=== PATIENT | female | born 1950 | race Caucasian/White ===

== ENCOUNTER → 2018-11-09 07:03 | Outpatient (CLI) | payer OTHER, SELFPAY ==
[2018-11-09 07:40] LABS: Appearance Urine UA CLEAR; Bilirubin Urine UA NEGATIVE (NEGATIVE); Color Urine UA YELLOW; Glucose Urine UA NEGATIVE (Negative); Ketones Urine UA NEGATIVE (NEGATIVE); Leukocyte Esterase Urine UA 1+ (NEGATIVE); Nitrite Urine UA NEGATIVE (Negative); Occult Blood Urine UA NEGATIVE (Negative); Protein Urine UA NEGATIVE (Negative); Urobilinogen Urine UA 0.2 E.U./dL (0.2)
[2018-11-09 08:07] LABS: Add Manual Diff / Slide Review NO; Basophils Absolute Auto 0 /uL (0-100); Basophils Percent Auto 0.4 % (0-2); Eosinophils Absolute Auto 200 /uL (0-450); Eosinophils Percent Auto 2.9 % (2-4); Hematocrit 42.7 % (36-46); Hemoglobin 14.4 g/dL (12.0-16.0); Lymphocytes Absolute Auto 2400 /uL (1100-4500); Lymphocytes Percent Auto 42.2 % (25-40); Mean Corpuscular HGB Conc 33.7 % (30-36); Mean Corpuscular Hemoglobin 29.2 PG (26-34); Mean Corpuscular Volume 86.6 fL (80-100); Monocytes Absolute Auto 500 /uL (0-900); Monocytes Percent Auto 9.6 % (3-14); Neutrophils Absolute Auto 2500 /uL (1500-7000); Neutrophils Percent Auto 44.9 % (50-75); Platelet Count 369 X10^3/uL (150-400); Red Blood Cell Count 4.93 X10^6/uL (4.0-5.2); White Blood Cell Count 5.6 X10^3/uL (4.5-11.0)
[2018-11-09 08:12] LABS: RBC Urine 0-1/HPF (0-5/HPF); Squamous Epithelial Cell Urine 1-5 /HPF; WBC Urine 5-10/HPF (0-5/HPF)
[2018-11-09 08:13] LABS: Alanine Aminotransferase 25 IU/L (9-52); Albumin 4.4 g/dL (3.5-5.0); Albumin Globulin Ratio 1.3 (1.0-2.8); Alkaline Phosphatase 65 U/L (38-126); Aspartate Aminotransferase 28 IU/L (14-36); Bacteria Urine Moderate (10-30); Bilirubin Total 0.9 mg/dL (0.2-1.3); Blood Urea Nitrogen 12 mg/dL (7-17); Calcium 10.1 mg/dL (8.4-10.2); Carbon Dioxide 28 mmol/L (22-32); Chloride 101 mmol/L (98-107); Cholesterol 215 mg/dL (140-199); Culture Indicated Urine Specimen Cultured; Estimated Glomerular Filt Rate > 60.0 mL/min (>60); Globulin 3.3 g/dL (1.7-4.1); Glucose 100 mg/dL (80-110); HDL Cholesterol 68 mg/dL (40-60); HEMOLYSIS < 15 (0-50); LDL Cholesterol Calculated 129 mg/dL (<100); Potassium 4.6 mmol/L (3.4-5.1); Sodium 139 mmol/L (137-145); Total Protein 7.7 g/dL (6.3-8.2); Triglycerides 89 mg/dL (35-150)
[2018-11-09 08:44] LABS: Thyroid Stimulating Hormone 2.14 uIU/mL (0.47-4.68)
== END ==
PROVIDERS: PCP Family Medicine; Visit Provider Family Medicine
DX: I10 Essential (primary) hypertension (principal); Z51.81 Encounter for therapeutic drug level monitoring
CPT/HCPCS: 36415; 80053; 80061; 81003; 81015; 84443; 85025; 87086

== ENCOUNTER → 2019-08-24 08:17 | Outpatient (CLI) | payer OTHER, SELFPAY ==
[2019-08-24 09:21] LABS: Alanine Aminotransferase 16 IU/L (<35); Albumin 4.2 g/dL (3.5-5.0); Albumin Globulin Ratio 1.6 (1.0-2.8); Alkaline Phosphatase 66 U/L (38-126); Aspartate Aminotransferase 28 IU/L (14-36); BUN Creatinine Ratio 18.6 (6-22); Bilirubin Total 0.8 mg/dL (0.2-1.3); Blood Urea Nitrogen 13 mg/dL (7-17); Calcium 9.9 mg/dL (8.4-10.2); Carbon Dioxide 28 mmol/L (22-32); Chloride 99 mmol/L (98-107); Cholesterol 211 mg/dL (140-199); Estimated Glomerular Filt Rate > 60.0 mL/min (>60); Globulin 2.6 g/dL (1.7-4.1); Glucose 91 mg/dL (80-110); HDL Cholesterol 66 mg/dL (40-60); HEMOLYSIS < 15 (0-50); LDL Cholesterol Calculated 131 mg/dL (<100); Potassium 4.5 mmol/L (3.4-5.1); Sodium 135 mmol/L (137-145); Total Protein 6.8 g/dL (6.3-8.2); Triglycerides 68 mg/dL (35-150)
[2019-08-24 09:52] LABS: Creatinine Urine Random 79.5 mg/dL
[2019-08-24 09:57] LABS: Microalbumi Creatinin Ratio Ur 11.3 ug/mg CR (<30); Microalbumin Urine Random 0.9 mg/dL (0-1.6)
== END ==
PROVIDERS: Physician Assistant; PCP Family Medicine; Visit Provider Family Medicine
DX: Z13.220 Encounter for screening for lipoid disorders (principal); Z13.6 Encounter for screening for cardiovascular disorders; I10 Essential (primary) hypertension
CPT/HCPCS: 36415; 80053; 80061; 82043; 82570

== ENCOUNTER → 2020-05-30 14:20 | Outpatient (CLI) | payer OTHER, SELFPAY ==
--- NOTE | 2020-05-30 14:21 | DI.MG.S_ITS ---
BILATERAL DIGITAL SCREENING MAMMOGRAM 3D/2D WITH CAD: 05/30/2020 CLINICAL: Routine screening. Family history of breast cancer. Comparison is made to exams dated: 02/16/2018 mammogram, 12/17/2015 mammogram, and 01/30/2002 mammogram - [facility]. The tissue of both breasts is predominantly fatty. Current study was also evaluated with a Computer Aided Detection (CAD) system. No significant masses, calcifications, or other findings are seen in either breast. There has been no significant interval change. IMPRESSION: NEGATIVE There is no mammographic evidence of malignancy. A 1 year screening mammogram is recommended. This exam was interpreted at Station ID: [id number]. NOTE: For mammograms, a report in lay terms will be sent to the patient. Approximately 15% of breast malignancies will not be visualized mammographically. In the management of a palpable breast mass, a negative mammogram must not discourage biopsy of a clinically suspicious lesion. Electronically Signed By: Mark silva/nick:05/30/2020 17:36:45 letter sent: Normal Exam ACR BI-RADS Category 1: Negative 3341F
== END ==
PROVIDERS: PCP Student in an Organized Health Care Education/Training Program; Referring Provider Student in an Organized Health Care Education/Training Program; Visit Provider Student in an Organized Health Care Education/Training Program
DX: Z12.31 Encounter for screening mammogram for malignant neoplasm of breast (principal); Z80.3 Family history of malignant neoplasm of breast; Z13.820 Encounter for screening for osteoporosis; M85.851 Other specified disorders of bone density and structure, right thigh; Z78.0 Asymptomatic menopausal state; Z91.89 Other specified personal risk factors, not elsewhere classified
CPT/HCPCS: 77063; 77067; 77080

== ENCOUNTER → 2020-08-28 06:44 | Outpatient (CLI) | payer OTHER, SELFPAY ==
[2020-08-28 08:34] LABS: BUN Creatinine Ratio 15.2 (6-22); Blood Urea Nitrogen 12 mg/dL (7-17); Calcium 10.1 mg/dL (8.4-10.2); Carbon Dioxide 32 mmol/L (22-32); Chloride 101 mmol/L (98-107); Estimated Glomerular Filt Rate > 60.0 mL/min (>60); Glucose 102 mg/dL (80-110); HEMOLYSIS < 15 (0-50); Sodium 135 mmol/L (137-145)
== END ==
PROVIDERS: PCP Student in an Organized Health Care Education/Training Program; Referring Provider Student in an Organized Health Care Education/Training Program; Visit Provider Student in an Organized Health Care Education/Training Program
DX: I10 Essential (primary) hypertension (principal)
CPT/HCPCS: 36415; 80048

== ENCOUNTER → 2020-11-11 07:30 | Outpatient (CLI) | payer MEDICARE, SELFPAY ==
[2020-11-11] MEDS: COVID-19 VACC #1, MRNA(MOD) 100 MCG/0.5 ML VIAL IM (07:35)
== END ==
PROVIDERS: PCP Student in an Organized Health Care Education/Training Program; Visit Provider Internal Medicine
DX: Z23 Encounter for immunization (principal)
CPT/HCPCS: 0011A; 91301

== ENCOUNTER → 2020-12-09 07:28 | Outpatient (CLI) | payer MEDICARE, SELFPAY ==
[2020-12-09] MEDS: COVID-19 VACC #2, MRNA(MOD) 100 MCG/0.5 ML VIAL IM (07:34)
== END ==
PROVIDERS: PCP Student in an Organized Health Care Education/Training Program; Visit Provider Internal Medicine
DX: Z23 Encounter for immunization (principal)
CPT/HCPCS: 0012A; 91301

== ENCOUNTER → 2021-03-03 15:31 | Outpatient (CLI) | payer OTHER, SELFPAY ==
[2021-03-03 16:38] LABS: Mean Corpuscular HGB Conc 33.4 % (30-36); Mean Corpuscular Hemoglobin 28.1 PG (26-34); Mean Corpuscular Volume 84.3 fL (80-100); Platelet Count 301 X10^3/uL (150-400); Red Blood Cell Count 4.27 X10^6/uL (4.0-5.2); Red Cell Distribution Width 13.6 % (11.6-14.8); White Blood Cell Count 12.5 X10^3/uL (4.5-11.0)
[2021-03-03 16:42] LABS: Add Manual Diff / Slide Review YES
[2021-03-03 16:58] LABS: Creatine Kinase 21 U/L (30-135)
[2021-03-03 17:02] LABS: Alanine Aminotransferase 71 IU/L (<35); Albumin 3.4 g/dL (3.5-5.0); Alkaline Phosphatase 78 U/L (38-126); Aspartate Aminotransferase 83 IU/L (14-36); BUN Creatinine Ratio 12.7 (6-22); Bilirubin Total 0.6 mg/dL (0.2-1.3); Blood Urea Nitrogen 10 mg/dL (7-17); C-Reactive Protein Quant 1.7 mg/dL (<1.0); Calcium 9.8 mg/dL (8.4-10.2); Carbon Dioxide 27 mmol/L (22-32); Chloride 102 mmol/L (98-107); Estimated Glomerular Filt Rate > 60.0 mL/min (>60); Globulin 3.4 g/dL (1.7-4.1); Glucose 108 mg/dL (80-110); HEMOLYSIS < 15 (0-50); Potassium 4.2 mmol/L (3.4-5.1); Sodium 134 mmol/L (137-145); Total Protein 6.8 g/dL (6.3-8.2)
[2021-03-03 17:08] LABS: Neutrophils Absolute Manual 3375 /uL (3000-5900); Total Cells Counted 100
[2021-03-03 17:10] LABS: RBC Morphology Normal Morphology; Reactive Lymphocytes 2+; Troponin I < 0.012 ng/mL (0.01-0.034)
[2021-03-03 17:38] LABS: Erythrocyte Sedimentation Rate 34 MM/HR (0-20)
== END ==
PROVIDERS: PCP Student in an Organized Health Care Education/Training Program; Referring Provider Student in an Organized Health Care Education/Training Program; Visit Provider Student in an Organized Health Care Education/Training Program
DX: I95.9 Hypotension, unspecified (principal); R10.9 Unspecified abdominal pain
CPT/HCPCS: 36415; 80053; 82550; 84484; 85007; 85025; 85651; 86140

== ENCOUNTER → 2021-03-19 07:03 | Outpatient (CLI) | payer OTHER, SELFPAY ==
[2021-03-19 07:51] LABS: Hemoglobin 12.8 g/dL (12.0-16.0); Mean Corpuscular HGB Conc 33.6 % (30-36); Mean Corpuscular Hemoglobin 28.5 PG (26-34); Platelet Count 298 X10^3/uL (150-400); Red Blood Cell Count 4.47 X10^6/uL (4.0-5.2); Red Cell Distribution Width 15.1 % (11.6-14.8); White Blood Cell Count 9.6 X10^3/uL (4.5-11.0)
[2021-03-19 08:19] LABS: Neutrophils Absolute Manual 2976 /uL (3000-5900); RBC Morphology Normal Morphology; Total Cells Counted 100
--- NOTE | 2021-03-19 15:55 | DI.ECHO.S_ITS ---
[facility]---------+ [facility] +---------+ : : [address] : : : : [id number] : : : : Phone: [phone]---------+ Echocardiogram Report + + :Name: CARLOS GRAMAJO Study Date: 03/19/2021 Height: 64.5 in : :[facility] ReadingLocation: Weight: 175 lb : : Gender: Female BSA: 1.9 m2 : :: 1950 Age: 70 yrs BP: 148/102 mmHg: :Reason For Study: HYPOTENSION : :Ordering Physician: ANIBAL, : :MISA Performed By: Autumn Yates : :Referring: MISA BARNETT : + + Interpretation Summary The left ventricle is normal in size and wall thickness. Left ventricular systolic function appears normal without focal wall motion abnormalities. The ejection fraction is estimated to be 55-60%. Diastolic parameters suggest probable normal left ventricular diastolic function and normal filling pressures. The right ventricle is normal in size and function. Pulmonary artery pressures cannot be estimated because of the lack of a measurable TR jet velocity but the IVC suggests a CVP of around 3 mmHg. The left atrium is mildly dilated. Right atrial size is normal. There is no significant valvular heart disease. The aortic root is normal size. Procedure: A two-dimensional transthoracic echocardiogram with color flow and Doppler was performed. The study quality was technically adequate. There is no prior echocardiogram noted for this patient. The patient was in sinus rhythm with heart rates between 84-101 bpm during the exam. Left Ventricle: The left ventricle is normal in size and wall thickness. Left ventricular systolic function appears normal without focal wall motion abnormalities. The ejection fraction is estimated to be 55-60%. Diastolic parameters suggest probable normal left ventricular diastolic function and normal filling pressures. Right Ventricle: The right ventricle is normal in size and function. Atria: The left atrium is mildly dilated. Right atrial size is normal. There is no Doppler evidence for an interatrial shunt. Mitral Valve: The mitral valve is normal in structure and function. There is trace mitral regurgitation. Aortic Valve: The aortic valve opens well. There is no aortic valve stenosis. No aortic regurgitation is present. Tricuspid Valve: The tricuspid valve is not well visualized, but is grossly normal. No tricuspid regurgitation. Pulmonary artery pressures cannot be estimated because of the lack of a measurable TR jet velocity but the IVC suggests a CVP of around 3 mmHg. Pulmonic Valve: The pulmonic valve is not well seen, but is grossly normal. There is no pulmonic valvular regurgitation. There is no significant valvular heart disease. Great Vessels: The aortic root is normal size. The dimensions of the ascending aorta are normal. The IVC is of normal diameter and collapses greater than 50% with a sniff. This suggests a low right atrial pressure of 3 mm Hg. Pericardium/ Pleura There is no pericardial effusion. There is no pleural effusion. MMode/2D Measurements & Calculations LVIDd: 4.2 cm LVOT diam: 2.0 cm LVIDs: 2.8 cm Ao root diam: 3.1 cm FS: 33.1 % asc Aorta Diam: 3.2 cm IVSd: 1.0 cm Ao Arch Diam (Prox Trans): 2.2 cm LVPWd: 0.86 cm LV monroe. diameter/BSA (cm/m^2): 2.2 LV sys. diameter/BSA (cm/m^2): 1.5 LA A2 area: 21.0 cm2 RA long axis: 4.0 cm LA A4 area: 17.7 cm2 RA area: 13.7 cm2 LA length (vol): 4.5 cm RA vol: 39.9 ml LA vol: 70.0 ml RA : 21.5 ml/m2 LA vol index: 37.7 ml/m2 IVC diam: 0.71 cm RVD1 (basal): 2.6 cm TAPSE: 2.2 cm Doppler Measurements & Calculations Ao V2 max: 132.9 cm/sec LVOT Max Dejon: 93.4 cm/sec Ao V2 mean: 89.7 cm/sec LV V1 max P.5 mmHg Ao max P.1 mmHg LV V1 VTI: 19.0 cm Ao mean P.7 mmHg ESPERANZA(I,D): 2.3 cm2 Ao V2 VTI: 25.4 cm ESPERANZA(V,D): 2.2 cm2 sev ratio: 0.75 ESPERANZA indexed to BSA (cm^2/m^2): 1.3 MV E max dejon: 60.4 cm/sec PA V2 max: 100.1 cm/sec MV A max dejon: 64.4 cm/sec PA V2 mean: 75.1 cm/sec MV E/A: 0.94 PA mean P.4 mmHg Med Peak E' Dejon: 7.3 cm/sec PA pr(Accel): 22.5 mmHg E/E' med: 8.2 Lat Peak E' Dejon: 10.4 cm/sec E/E' lat: 5.8 E/e' average: 7.0 MV dec time: 0.28 sec SV(OT): 59.3 ml Reading Physician:06:13 PM
== END ==
PROVIDERS: PCP Student in an Organized Health Care Education/Training Program; Referring Provider Student in an Organized Health Care Education/Training Program; Visit Provider Student in an Organized Health Care Education/Training Program
DX: D72.820 Lymphocytosis (symptomatic) (principal); R10.9 Unspecified abdominal pain; I95.9 Hypotension, unspecified
CPT/HCPCS: 36415; 85025; 88184; 93306

== ENCOUNTER → 2021-06-01 09:19 | Outpatient (CLI) | payer OTHER, SELFPAY ==
--- NOTE | 2021-06-01 09:19 | DI.RAD.S_ITS ---
PROCEDURE: XR DEXA AXIAL SKELETON INDICATIONS: Osteoporosis on medication COMPARISON: [facility], CR, XR DEXA AXIAL SKELETON, 05/30/2020, 14:49. FINDINGS: This blank DEXA report has been sent in error by the PACS system. The correct and complete report will be forthcoming in 1-2 days. Thank you for your patience and understanding. Dictated by: Bibi Cortes MD, PhD on 06/01/2021 at 12:05 Approved by: Bibi Cortes MD, PhD on 06/01/2021 at 12:05
--- NOTE | 2021-06-01 09:19 | DI.MG.S_ITS ---
BILATERAL DIGITAL SCREENING MAMMOGRAM 3D/2D WITH CAD: 06/01/2021 CLINICAL: Routine screening. Family history of breast cancer. Comparison is made to exams dated: 05/30/2020 mammogram, 02/16/2018 mammogram, and 12/17/2015 mammogram - [facility]. There are scattered fibroglandular elements in both breasts. Current study was also evaluated with a Computer Aided Detection (CAD) system. There is an oval low density asymmetry with an indistinct margin in the left breast middle depth inferior region seen on the mediolateral oblique view only. No other significant masses, calcifications, or other findings are seen in either breast. IMPRESSION: INCOMPLETE: NEEDS ADDITIONAL IMAGING EVALUATION The oval low density asymmetry in the left breast is indeterminate. Mediolateral and spot compression views as well as additional views with possible ultrasound are recommended. This exam was interpreted at Station ID: [id number]. NOTE: For mammograms, a report in lay terms will be sent to the patient. Approximately 15% of breast malignancies will not be visualized mammographically. In the management of a palpable breast mass, a negative mammogram must not discourage biopsy of a clinically suspicious lesion. Electronically Signed By: Jacek marquez/nick:06/01/2021 10:22:44 letter sent: Additional Imaging Needed ACR BI-RADS Category 0: Incomplete 3340F
== END ==
PROVIDERS: PCP Student in an Organized Health Care Education/Training Program; Referring Provider Student in an Organized Health Care Education/Training Program; Visit Provider Student in an Organized Health Care Education/Training Program
DX: Z12.31 Encounter for screening mammogram for malignant neoplasm of breast (principal); Z78.0 Asymptomatic menopausal state; M85.852 Other specified disorders of bone density and structure, left thigh; Z80.3 Family history of malignant neoplasm of breast; Z87.891 Personal history of nicotine dependence
CPT/HCPCS: 77063; 77067; 77080

== ENCOUNTER → 2021-06-25 08:36 | Outpatient (CLI) | payer OTHER, SELFPAY ==
--- NOTE | 2021-06-25 08:38 | DI.MG.S_ITS ---
UNILATERAL LEFT DIGITAL DIAGNOSTIC MAMMOGRAM 3D/2D WITH ADDITIONAL VIEWS: 06/25/2021 CLINICAL: Additional evaluation requested from prior study. Comparison is made to exams dated: 06/01/2021 mammogram, 05/30/2020 mammogram, and 02/16/2018 mammogram - [facility]. There are scattered fibroglandular elements in left breast. The asymmetry with indistinct margins in the left breast middle depth inferior region seen on the mediolateral oblique view only is not seen on additional views. No other significant masses or calcifications are seen in the breast. IMPRESSION: BENIGN There is no mammographic evidence of malignancy. A 1 year screening mammogram is recommended. This exam was interpreted at Station ID: [id number]. NOTE: For mammograms, a report in lay terms will be sent to the patient. Approximately 15% of breast malignancies will not be visualized mammographically. In the management of a palpable breast mass, a negative mammogram must not discourage biopsy of a clinically suspicious lesion. Electronically Signed By: Jacek marquez/:06/25/2021 09:14:31 letter sent: Normal Exam ACR BI-RADS Category 2: Benign Finding(s) 3342F
== END ==
PROVIDERS: PCP Student in an Organized Health Care Education/Training Program; Referring Provider Student in an Organized Health Care Education/Training Program; Visit Provider Student in an Organized Health Care Education/Training Program
DX: R92.8 Other abnormal and inconclusive findings on diagnostic imaging of breast (principal)
CPT/HCPCS: 77065; G0279

== ENCOUNTER → 2021-07-29 10:41 | Outpatient (CLI) | payer OTHER, SELFPAY ==
[2021-07-29 11:47] LABS: BUN Creatinine Ratio 21.2 (6-22); Blood Urea Nitrogen 14 mg/dL (7-17); Cholesterol 131 mg/dL (140-199); Estimated Glomerular Filt Rate > 60.0 mL/min (>60); HDL Cholesterol 51 mg/dL (40-60); LDL Cholesterol Calculated 67 mg/dL (<100); Triglycerides 67 mg/dL (35-150)
== END ==
PROVIDERS: PCP Student in an Organized Health Care Education/Training Program; Referring Provider Student in an Organized Health Care Education/Training Program; Visit Provider Student in an Organized Health Care Education/Training Program
DX: E78.2 Mixed hyperlipidemia (principal); I10 Essential (primary) hypertension
CPT/HCPCS: 36415; 80061; 82565; 84520

== ENCOUNTER → 2022-09-20 08:37 | Outpatient (CLI) | payer OTHER, SELFPAY ==
[2022-09-20 12:22] LABS: BUN Creatinine Ratio 17.1 (6-22); Blood Urea Nitrogen 13 mg/dL (7-17); Calcium 9.9 mg/dL (8.4-10.2); Carbon Dioxide 27 mmol/L (22-32); Chloride 100 mmol/L (98-107); Estimated Glomerular Filt Rate > 60 mL/min (>60); Glucose 103 mg/dL (80-110); HEMOLYSIS < 15 (0-50); Potassium 4.5 mmol/L (3.4-5.1); Sodium 135 mmol/L (137-145)
== END ==
PROVIDERS: PCP Student in an Organized Health Care Education/Training Program; Referring Provider Student in an Organized Health Care Education/Training Program; Visit Provider Student in an Organized Health Care Education/Training Program
DX: M81.0 Age-related osteoporosis without current pathological fracture (principal); Z79.899 Other long term (current) drug therapy
CPT/HCPCS: 36415; 80048

== ENCOUNTER → 2022-09-29 14:37 | Outpatient (CLI) | payer OTHER, SELFPAY ==
--- NOTE | 2022-09-29 14:38 | DI.MG.S_ITS ---
BILATERAL DIGITAL SCREENING MAMMOGRAM 3D/2D WITH CAD: 09/29/2022 CLINICAL: Routine screening. Family history of breast cancer. Comparison is made to exams dated: 06/01/2021 mammogram, 05/30/2020 mammogram, 02/16/2018 mammogram, and 12/17/2015 mammogram - [facility]. There are scattered areas of fibroglandular density in both breasts (category b / 25%-50% glandular tissue). Current study was also evaluated with a Computer Aided Detection (CAD) system. There are mole markers on both breasts. No significant masses, calcifications, or other findings are seen in either breast. There has been no significant interval change. IMPRESSION: NEGATIVE There is no mammographic evidence of malignancy. A 1 year screening mammogram is recommended. Based on the Tyrer Cuzick model (a risk assessment model) the patient's lifetime risk is 5.8% and her 10 year risk is 4.8%. According to the ACR, ACS, and NCCN guidelines, an annual breast MRI exam along with mammogram is recommended if the patient's lifetime risk is 20% or greater. This exam was interpreted at Station ID: [id number]. NOTE: For mammograms, a report in lay terms will be sent to the patient. Approximately 15% of breast malignancies will not be visualized mammographically. In the management of a palpable breast mass, a negative mammogram must not discourage biopsy of a clinically suspicious lesion. Electronically Signed By: Chito jay/nick:09/29/2022 15:38:54 letter sent: Normal Exam ACR BI-RADS Category 1: Negative 3341F
== END ==
PROVIDERS: PCP Student in an Organized Health Care Education/Training Program; Referring Provider Student in an Organized Health Care Education/Training Program; Visit Provider Student in an Organized Health Care Education/Training Program
DX: Z12.31 Encounter for screening mammogram for malignant neoplasm of breast (principal); Z80.3 Family history of malignant neoplasm of breast; M85.852 Other specified disorders of bone density and structure, left thigh; Z78.0 Asymptomatic menopausal state; Z79.83 Long term (current) use of bisphosphonates
CPT/HCPCS: 77063; 77067; 77080

== ENCOUNTER → 2023-12-22 07:09 | Outpatient (CLI) | payer OTHER, SELFPAY ==
[2023-12-22 07:37] LABS: Add Manual Diff / Slide Review NO; Basophils Absolute Auto 100 /uL (0-100); Basophils Percent Auto 1.5 % (0-2); Eosinophils Absolute Auto 100 /uL (0-450); Eosinophils Percent Auto 1.8 % (2-4); Hematocrit 40.9 % (36-46); Hemoglobin 13.9 g/dL (12.0-16.0); Lymphocytes Absolute Auto 2300 /uL (1100-4500); Lymphocytes Percent Auto 39.7 % (25-40); Mean Corpuscular Hemoglobin 29.3 PG (26-34); Mean Corpuscular Volume 86.1 fL (80-100); Monocytes Absolute Auto 600 /uL (0-900); Monocytes Percent Auto 9.9 % (3-14); Neutrophils Absolute Auto 2700 /uL (1500-7000); Neutrophils Percent Auto 47.1 % (50-75); Platelet Count 294 X10^3/uL (150-400); Red Blood Cell Count 4.75 X10^6/uL (4.0-5.2); Red Cell Distribution Width 13.6 % (11.6-14.8); White Blood Cell Count 5.7 X10^3/uL (4.5-11.0)
[2023-12-22 08:00] LABS: Alanine Aminotransferase 32 IU/L (<35); Albumin 3.7 g/dL (3.5-5.0); Albumin Globulin Ratio 1.3 (1.0-2.8); Alkaline Phosphatase 61 U/L (38-126); Aspartate Aminotransferase 36 IU/L (14-36); BUN Creatinine Ratio 20.3 (6-22); Bilirubin Total 1.3 mg/dL (0.2-1.3); Blood Urea Nitrogen 15 mg/dL (7-17); Carbon Dioxide 27 mmol/L (22-32); Chloride 107 mmol/L (98-107); Cholesterol 178 mg/dL (140-199); Estimated Glomerular Filt Rate > 60 mL/min (>60); Globulin 2.8 g/dL (1.7-4.1); Glucose 106 mg/dL (80-110); HDL Cholesterol 64 mg/dL (40-60); HEMOLYSIS < 15 (0-50); LDL Cholesterol Calculated 98 mg/dL (<100); Potassium 4.1 mmol/L (3.4-5.1); Sodium 138 mmol/L (137-145); Total Protein 6.5 g/dL (6.3-8.2); Triglycerides 81 mg/dL (35-150)
[2023-12-22 08:15] LABS: Vitamin D 25 Hydroxy (D3) 53.6 ng/mL (30.0-100.0)
== END ==
PROVIDERS: PCP Family Medicine; Referring Provider Family Medicine; Visit Provider Family Medicine
DX: Z00.00 Encounter for general adult medical examination without abnormal findings (principal); E78.2 Mixed hyperlipidemia; M85.80 Other specified disorders of bone density and structure, unspecified site; Z13.6 Encounter for screening for cardiovascular disorders
CPT/HCPCS: 36415; 80053; 80061; 82306; 85025

== ENCOUNTER → 2024-10-02 14:25 | Outpatient (CLI) | payer OTHER, SELFPAY ==
--- NOTE | 2024-10-02 14:30 | DI.RAD.S_ITS ---
PROCEDURE: XR DEXA AXIAL SKELETON INDICATIONS: Osteopenia COMPARISON: [facility], CR, XR DEXA AXIAL SKELETON, 09/29/2022, 15:14. [facility], CR, XR DEXA AXIAL SKELETON, 06/01/2021, 9:48. FINDINGS: Lumbar Spine: Bone mineral density 0.90 g/cm2, T score -1.3, previously -1.6. Left Hip: Bone mineral density 0.73 g/cm2, T score -1.7, previously -1.8. Left Femoral Neck: Bone mineral density 0.59 g/cm2, T score -2.3, previously -2.2. Right Hip: Bone mineral density 0.78 g/cm2, T score -1.4, previously -1.3. Right Femoral Neck: Bone mineral density 0.58 g/cm2, T score -2.4, previously -2.2. Fracture Risk Calculation (when applicable): 10-year fracture risk of a major osteoporotic fracture 22 percent and of a hip fracture 6 percent. (T score greater or equal to -1.0 to: NORMAL) (T score from -1.1 to -2.4: OSTEOPENIA) (T score less than or equal to -2.5: OSTEOPOROSIS) IMPRESSION: Osteopenia with fracture risk calculation above. Follow-up guidelines as follows: Osteoporosis: Consider a repeat DEXA and Vertebral Fracture Assessment (VFA) exam in 2 years or sooner if medically necessary, to reassess this patient's status. Osteopenia: Consider a repeat DEXA in 2-3 years to reassess this patient's status, or if there is a new clinical indication. Normal: Consider a repeat DEXA in 5 years or sooner, or if there is a new clinical indication. All treatment decisions require clinical judgment and consideration of individual patient factors, including patient preferences, comorbidities, previous drug use, risk factors not captured in the FRAX model (e.g., frailty, falls, vitamin D deficiency, increased bone turnover, interval significant decline in bone density ) and possible under- or over-estimation of fracture risk by FRAX. In addition, the NOF Guide recommends that FDA-approved medical therapies be considered in postmenopausal women and men age >= 50 years with a: * Hip or vertebral (clinical or morphometric) fracture * T-score of <=-2.5 at the spine or hip * Ten-year fracture probability by FRAX of >= 3% for hip fracture or >=20% for major osteoporotic fracture. People with diagnosed cases of osteoporosis or at high risk for fracture should have regular bone mineral density tests. For patients eligible for Medicare, routine testing is allowed once every 2 years. The testing frequency can be increased to one year for patients who have rapidly progressing disease, those who are receiving or discontinuing medical therapy to restore bone mass, or have additional risk factors. Dictated by: Singh Greer M.D. on 10/03/2024 at 14:42 Approved by: Singh Greer M.D. on 10/03/2024 at 14:43
== END ==
PROVIDERS: PCP Family Medicine; Referring Provider Family Medicine; Visit Provider Family Medicine
DX: M85.89 Other specified disorders of bone density and structure, multiple sites (principal)
CPT/HCPCS: 77080

== ENCOUNTER 2025-07-18 09:46 | Emergency (ER) | payer OTHER, SELFPAY ==
[2025-07-18 09:47] VITALS: BP 199/88; PULSE 94; RESP 14; TEMP 36.8; O2SAT 98; BMI 30.4
--- NOTE | 2025-07-18 09:54 | DI.RAD.S_ITS ---
PROCEDURE: XR KNEE RT 3V INDICATIONS: fall TECHNIQUE: 3 views of the knee were acquired. COMPARISON: None. FINDINGS: Bones: Comminuted patellar fracture without significant dislocation. Remaining osseous structures are intact. Soft tissues: Prominent joint effusion. No suspicious soft tissue calcifications. IMPRESSION: Comminuted patellar the fracture. Dictated by: Lori Galeano M.D. on 07/18/2025 at 10:19 Approved by: Lori Galeano M.D. on 07/18/2025 at 10:20
[2025-07-18 10:02] VITALS: PULSE 88; O2SAT 98
--- NOTE | 2025-07-18 10:25 | ED.FALL ---
HPI - Fall General Chief Complaint: Fall Stated Complaint: Fell x 1 day , Right knee pain Time Seen by Provider: 07/18/25 09:54 Source: patient Mode of arrival: Wheelchair History of Present Illness HPI Narrative: 75-year-old female presents with right knee pain swelling and bruising after a ground level fall yesterday. Patient reports tripping on the cement curb, fell forward onto her hands and knees. She has isolated right knee pain. She is not able to raise her leg due to pain and weakness. No prior injury of this knee. Reports history of hypertension, osteoporosis Related Data Home Medications ?Medication ?Instructions ?Recorded ?Confirmed biotin 5 mg tablet 5 mg PO DAILY 01/29/25 05/15/25 Previous Rx's ?Medication ?Instructions ?Recorded alendronate 70 mg tablet 70 mg PO QWEEK #12 tabs 10/26/24 atorvastatin 40 mg tablet 40 mg PO BEDTIME #90 tabs 12/13/24 Allergies Allergy/AdvReac Type Severity Reaction Status Date / Time Sulfa (Sulfonamide Allergy Mild Rash Verified 07/18/25 09:55 Antibiotics) cortisone (CORTISONE) Allergy Unknown swelling Verified 07/18/25 09:55 Penicillins (PENICILLINS) Allergy Unknown rash Verified 07/18/25 09:55 Review of Systems Review of Systems Narrative: Pertinent ROS obtained and negative except as stated in HPI Patient History Medical History Nonscarring hair loss, unspecified Lymphocytosis Obesity (BMI 30.0-34.9) Right-sided low back pain with sciatica Surgical History Status post delivery Social History Tobacco: How many years used: 2 alcohol intake: former (glass of wine per night) Smoking Status: Unknown if ever smoked Exam Initial Vital Signs Initial Vital Signs: Vital Signs Temperature 98.3 F 07/18/25 09:47 Pulse Rate 94 H 07/18/25 09:47 Respiratory Rate 14 07/18/25 09:47 Blood Pressure 199/88 H 07/18/25 09:47 Pulse Oximetry 98 07/18/25 09:47 Oxygen Delivery Method Room Air 07/18/25 09:47 Constitutional: Well appearing, no acute distress Head: NCAT Cardiovascular: normal rate, appears well perfused Pulmonary: normal effort Extremities: There is moderate edema over the right anterior knee with ecchymosis. There is focal tenderness over the patella, no tenderness over the medial or lateral joint lines are posterior knee. Patient not able to straight leg raise. Full extension is possible. Deferred passive extremes of range of motion testing. 2+ DP pulse in the right foot and normal sensation. No bony tenderness over the hip pelvis ankle, femur or tibia Skin: warm and dry Neurological: Alert Course Orders Ordered: ED Orders 07/18/25 09:54 XR knee RT 3V Stat Vital Signs Vital signs: Vital Signs - 8 hr 07/18/25 09:47 Temperature 98.3 F Pulse Rate 94 H Respiratory Rate 14 Blood Pressure 199/88 H Pulse Oximetry 98 Oxygen Delivery Method Room Air MDM - Fall MDM Narrative Medical decision making narrative: Patient presents with isolated injury to the right knee after a mechanical fall. She fell directly onto her hands and knees. No other apparent injuries by patient's report or clinically. There is however swelling and ecchymosis over the anterior knee as described in patient is not able to straight leg raise. No apparent neurovascular injury. X-rays obtained and does show a comminuted patellar fracture. Spoke with Dr. Valdes who recommends -CT of the knee to further characterize whether can be managed nonoperatively -do not need to follow up with him regarding results of CT, we will get patient into the clinic as soon as possible -agrees with knee immobilizer nonweightbearing CT result: Bones: Comminuted fracture of the patella is seen with numerous small minimally displaced comminuted fracture fragments. There is approximately the 2 mm step-off at the medial patellar facet articular surface. 3D reconstructed images better demonstrate the relationship of the fracture fragments. Remaining osseous structures are intact. There is generalized bony demineralization. Minimal arthritic changes are noted in the knee. Patient is provided with knee immobilizer. She declines crutches as has some at home. She is aware as is her of the knee fracture and need for orthopedic follow up promptly. She is instructed to remain nonweightbearing and leave knee immobilizer in place. We had discussed pain management strategies at home. She declines any narcotic prescriptions at this time Discharge Plan Departure Patient Disposition: Home Clinical Impression: Patellar fracture Instructions: DI for Patella Fracture Activity Restrictions/Additional Instructions: Please call orthopedic office to schedule an appointment. Ideally this would occur tomorrow or early next week. In the meantime do not put weight onto your right leg. Use knee immobilizer at all times and remain nonweightbearing with use of crutches. For pain you may take acetaminophen 1000 mg every 6 hours. Keeping the extremity elevated and applying ice can also be helpful. Prescriptions: No Action alendronate 70 mg tablet 70 mg PO QWEEK Qty: 12 3RF atorvastatin 40 mg tablet 40 mg PO BEDTIME Qty: 90 3RF biotin 5 mg tablet 5 mg PO DAILY Referrals: Ulises Valdes MD [Physician, Orthopedic Surgery] Referral Note: patellar fx Bruna Stiles DO [Primary Care Provider, Family Practice] Stand Alone Forms: Patient Portal/API
[2025-07-18 10:30] VITALS: BP 161/72; PULSE 81; O2SAT 98
--- NOTE | 2025-07-18 10:33 | DI.CT.S_ITS ---
PROCEDURE: CT LE RT WO CON INDICATIONS: patellar fx TECHNIQUE: Noncontrast 1-1.5 mm axial sections acquired from the mid-patella to the proximal tibia, with coronal and sagittal reformats. For radiation dose reduction, the following was used: automated exposure control, adjustment of mA and/or kV according to patient size. 3D reconstructed volume rendering images were also generated for fracture evaluation. COMPARISON: [facility], CR, XR KNEE RT 3V, 07/18/2025, 9:49. FINDINGS: Image quality: Excellent. Bones: Comminuted fracture of the patella is seen with numerous small minimally displaced comminuted fracture fragments. There is approximately the 2 mm step- off at the medial patellar facet articular surface. 3D reconstructed images better demonstrate the relationship of the fracture fragments. Remaining osseous structures are intact. There is generalized bony demineralization. Minimal arthritic changes are noted in the knee. Soft tissues: Small knee effusion. No significant medial popliteal cyst. Soft tissue edema is seen surrounding the knee. The articular cartilages, menisci, ligaments, tendons are not well evaluated with CT. Visualized musculature is normal in bulk. IMPRESSION: Minimally displaced and moderately comminuted fracture of the patella as described above. Approved by: Sukhdeep Pinzon M.D. on 07/18/2025 at 11:20
== END 2025-07-18 11:44 | disposition home or self-care (01) ==
PROVIDERS: Emergency Provider Student in an Organized Health Care Education/Training Program; PCP Family Medicine
DX: S82.041A Displaced comminuted fracture of right patella, initial encounter for closed fracture (principal); W18.30XA Fall on same level, unspecified, initial encounter
CPT/HCPCS: 73562; 73700; 99283; 99284

== ENCOUNTER 2025-07-24 08:16 | Day surgery (SDC) | payer OTHER, SELFPAY ==
[2025-07-22 13:38] VITALS: BMI 30.4
[2025-07-24] VITALS (10 sets, daily range): BP systolic 111–164; BP diastolic 64–78; PULSE 82–96; RESP 10–16; TEMP 36.1–36.9; O2SAT 95–98; BMI 30.4
--- NOTE | 2025-07-24 | DI.RAD.S_ITS ---
PROCEDURE: XR KNEE RT 1TO2V INDICATIONS: POST OP RIGHT PATELLA TECHNIQUE: 2 views of the knee were acquired. COMPARISON: [facility], CR, XR KNEE RT 1TO2V, 07/24/2025, 13:05. [facility], CR, XR KNEE RT 3V, 07/18/2025, 9:49. FINDINGS: Plate and screw fixation of patellar fracture with anatomic alignment. Intra- articular and subcutaneous gas associated with recent procedure. Diffuse soft tissue swelling. Normal joint alignment. IMPRESSION: Patellar fracture fixation. Dictated by: Chandra Montemayor M.D. on 07/24/2025 at 16:59 Approved by: Chandra Montemayor M.D. on 07/24/2025 at 17:00
--- NOTE | 2025-07-24 | DI.RAD.S_ITS ---
PROCEDURE: XR KNEE RT 1TO2V INDICATIONS: R PATELLA ORIF TECHNIQUE: 2 views of the knee were acquired. COMPARISON: [facility], , XR KNEE RT 3V, 07/18/2025, 9:49. FINDINGS: Intraoperative examination demonstrating plate screw fixation of patellar fracture with improved alignment. IMPRESSION: As above Dictated by: Chandra Montemayor M.D. on 07/24/2025 at 16:58 Approved by: Chandra Montemayor M.D. on 07/24/2025 at 16:59
[2025-07-24] MEDS: LACTATED RINGERS 1,000 ML 42 ML IV ×2 (08:41→12:17)
[2025-07-24] MEDS: ACETAMINOPHEN 325 MG TABLET 975 MG PO (08:45)
--- NOTE | 2025-07-24 11:12 | PM.PREOP ---
Pre-operative Note COVID-19 Result date/Date tested (Pos, Neg/Pending): 07/24/25 Interval Note History & Physical reviewed/Exam performed by Physician: Yes Changes to H&P: No
--- NOTE | 2025-07-24 12:02 | SUR.OPER ---
Supine on padded OR bed, head on pillow, arms secured on padded arm boards at <90 degrees abduction, legs uncrossed, safety belt at thig, tape over blanket over lower legs.
--- NOTE | 2025-07-24 12:03 | SUR.OPER ---
Supine on padded OR bed, head on pillow, arms secured on padded arm boards at <90 degrees abduction, legs uncrossed, safety belt at abdomen, right leg resting on bone foam, tape over blanket and left lower leg and bone foam. Final position approved by Dr. Turner.
--- NOTE | 2025-07-24 13:49 | PM.OP.1 ---
Operative Date/Time/Diagnoses Date of procedure: 07/24/25 Time of procedure: 12:00 Pre-op diagnosis: RIGHT Patellar Fracture Post-op diagnosis: same Procedure & Clinicians Procedure: ORIF of the RIGHT Patellar Fracture Same procedure(s) as scheduled: Yes Indications: Disrupted extensor mechanism Surgeon: Arpit Ruano Assisted?: Yes Orthopedic Nurse: Sandy Smith Anesthesia Type: General Operative Notes Findings: Comminuted patellar fracture Specimen(s): none sent Applied: none Estimated Blood Loss (mL): 25 Blood products transfused: none Tourniquet time (min): 94 Procedure in detail: The patient was brought to the operating room. They were placed in the supine position. After general endotracheal anesthesia was obtained, a foam bolster was placed beneath the operative leg, bump beneath the operative buttock. The lower extremity was prepped and draped in a sterile manner in the usual fashion. The C-arm image intensifier was covered with sterile drape. A timeout procedure was performed by the entire operating room team and all were in agreement. The Leg was exsanguinated using an Esmarch and tourniquet was inflated. A longitudinal incision was made starting proximal to the proximal pole of the patella and extending to the patellar tendon. Full-thickness flaps were made. the retinaculum and periosteum were still intact around the patella. A midline incision was made through the bursa and periosteum to better visualize the patella. The fracture lines were identified. Fractures were opened for debridement with curettes and rongeurs. We were able to examined the joint through the fracture lines and there were no loose bodies or damage to the cartilage identified. The joint was then irrigated. At this point we turned our attention to try and reduce the main transverse fracture line. The reduction of the superior pole and inferior fragments was held in place with 2 qislj-dy-qpeij clamps. Our reduction was again confirmed on AP and lateral fluoroscopy. We placed 1 K-wire laterally from inferior to superior across the transverse fracture line. This was confirmed in AP and lateral fluoroscopy to ensure the appropriate length and that it was not inside the joint. The K-wire depth was then measured and we placed a headless compression screw over the K-wire. Another K-wire was then placed from inferior to superior along the medial aspect of the patella. This was also the guidewire for a vertical headless compression screw. This held all of our fracture fragments in place. At that time we chose a small anterior patellar plate. This was sized and shaped for her patella. We 1st started with a cortical screw through the inferior portion of the plate. The tension band construct was completed by placing another screw through the superior portion of the plate. Additional locking screws were placed around the periphery in order who support the additional comminution. The placement of our screws, plate and reduction was confirmed on AP and lateral fluoroscopy. To support our reduction and hardware we used a Krackow suture with #5 FiberWire both through the quad tendon and the patellar tendon which was tied over the top inattention band pattern. After final fixation the reduction and hardware placement were confirmed utilizing fluoroscopy. Happy with our reduction we then irrigated the surgical site. The wounds were closed in a layered fashion with the paratenon and periosteum closed with 0 Vicryl. Subcutaneous tissues were closed with 2-0 Vicryl and the skin was closed with 3-0 nylon. The wound was then dressed with Xeroform, 4x4s, ABD and then wrapped with an [place] wrap. She was placed in a knee immobilizer. All counts were correct. She was then awakened and transferred to the PACU in the stable condition. She will be discharge same day. Postop plan: Nonweightbearing on the operative extremity knee held in full extension in the knee immobilizer at all times dressings we will be removed postop day 4; Sutures will likely come out at the 2 week follow up appointment. Follow up with Orthopedics in 2 weeks Arpit Ruano MD Complications: none Post-operative Condition: stable Disposition: PACU
== END 2025-07-24 15:30 | disposition home or self-care (01) ==
LOC: OR 08:17
PROVIDERS: PCP Family Medicine; Referring Provider Orthopaedic Surgery; Visit Provider Orthopaedic Surgery
PROC: 0QSD04Z Reposition Right Patella with Internal Fixation Device, Open Approach (ICD-10-PCS; CPT 27524; principal; 2025-07-24 09:45)
DX: S82.041A Displaced comminuted fracture of right patella, initial encounter for closed fracture (principal); W18.30XA Fall on same level, unspecified, initial encounter; I10 Essential (primary) hypertension
CPT/HCPCS: 27524; 73560; 76000; C1713; J0330; J0689; J1100; J1171; J2405; J2704; J3010; J7120